=== PATIENT | male | born 1985 | race Caucasian/White ===

== ENCOUNTER 2023-06-15 19:05 | Emergency (ER) | payer BC, SELFPAY ==
[2023-06-15 19:07] VITALS: BP 114/77; PULSE 83; RESP 18; TEMP 36.1; O2SAT 99; BMI 25.0
--- NOTE | 2023-06-15 19:37 | EKG12_ITS ---
Test Reason : SYNCOPE Blood Pressure : / mmHG Vent. Rate : 075 BPM Atrial Rate : 075 BPM P-R Int : 156 ms QRS Dur : 104 ms QT Int : 392 ms P-R-T Axes : 050 060 040 degrees QTc Int : 437 ms Normal sinus rhythm Normal ECG Confirmed by El Naranjo ([id number]), editor news MAVIS HOLLOWAY ([id number]) on 06/17/2023 10:59:44 AM Referred By: Confirmed By:El Naranjo
[2023-06-15 19:51] LABS: Hematocrit 47.4 % (40-54); Hemoglobin 16.6 g/dL (13.0-16.5); Mean Corpuscular Hgb 31.5 pg (27.0-32.0); Mean Corpuscular Volume 89.9 fL (80-94); Mean Platelet Vol. 9.7 fl (6.2-12.0); Platelet Count 332 K/mm3 (150-450); RBC Distribution Width CV 12.4 % (11.6-14.6); RBC Distribution Width SD 40.5 fl (35.1-43.9); Red Blood Count 5.27 M/mm3 (4.6-6.2)
[2023-06-15 20:05] VITALS: BP 122/75; PULSE 87; RESP 17; O2SAT 99
[2023-06-15 20:12] LABS: Anion Gap 9 (5-15); BUN 12 mg/dL (7-18); BUN/Creat Ratio 10.5 RATIO (10-20); Calcium,Total 9.3 mg/dL (8.5-10.1); Chloride 104 mmol/L (98-107); Creatinine, Serum 1.14 mg/dL (0.70-1.30); EST Glomerular Filtration Rate 76 mL/min (>60); Est Glom Filt Rate - Afr Amer 92 mL/min (>60); Estimated Creatinine Clearance 102.15 ml/min; Glucose 127 mg/dL (74-106); Potassium 3.4 mmol/L (3.5-5.1); Sodium Level 138 mmol/L (136-145)
[2023-06-15 20:38] VITALS: BP 118/74; BP 131/86; BP 134/87; PULSE 103; PULSE 85; PULSE 90
[2023-06-15 21:02] VITALS: BP 130/77; PULSE 87; RESP 14; O2SAT 98
--- NOTE | 2023-06-15 21:27 | EDS_ITS ---
HPI History of Present Illness Chief Complaint: Syncope Detail of Chief Complaint: Syncopal episode Informant: patient and spouse/S.O. Onset/Context/Timing Onset: Today and Hours Context: Sudden Onset Timing: Intermittent Quality: Syncope Location: [facility] Current Severity: Gone Maximum Severity: Severe Worsened by: After having a full meal and 3 beers since noon Relieved by: Not applicable Associated Symptoms Associated Symptoms: according to pallor, diaphoresis and possible generalized seizure act Narrative Narrative: Patient is a 37-year-old male. He has had 3 prior episodes of syncope. They occurred after eating a full meal after not eating anything for the entire day. He has no history of orthostatic hypotension, POTS or any cardiac disease. has history of POTS. She does see Dr. Wray. He denies headache, visual, ocular auditory symptoms. Denies chest pain, shortness of breath, dyspnea on exertion, orthopnea or PND. He denies leg pain or leg swelling. He has no history of VTE. He denies abdominal pain, he denies black or maroon-colored stool. He did report feeling nauseous and felt like he was going to pass out. He states his vision became black. Prior similar symptoms: Yes Recent Illness/Hospitalization: No PFSH PFSH Medical History no medical history no medical history Allergy/AdvReac Type Severity Reaction Status Date / Time No Known Allergies Allergy Verified 06/15/23 19:06 Surgical History no surgical history no surgical history Social History (Updated 06/15/23 @ 21:[address] Demar Calixto MD) household members: spouse and children Smoking Status: Never smoker do you feel safe at home: Yes ROS ROS ED Constitutional Constitutional ED: Denies chills, fever(s), subjective, sweats or weight loss Eyes Eyes: Denies blurry vision, change in vision or diplopia ENT ENT ED: Denies ear pain, rhinorrhea or sore throat Cardiovascular Cardiovascular: Denies chest pain, orthopnea, palpitations, paroxysmal nocturnal dyspnea or racing heartbeat Respiratory/Chest Respiratory/Chest: Denies cough, dyspnea, dyspnea on exertion, orthopnea or paroxysmal nocturnal dyspnea Gastrointestinal Gastrointestinal: Reports abdominal pain; Denies constipation, diarrhea, melena or vomiting Genitourinary Genitourinary ED: Denies dysuria, hematuria or urinary frequency Musculoskeletal Musculoskeletal: Denies arthralgias, back pain, myalgias or neck pain Integumentary Denies rash Neurologic Neurologic: Denies headache(s), paresthesias or weakness Endocrine Endocrinology: Denies cold intolerance or heat intolerance Hematologic/Lymphatic Hematologic/Lymphatic: Reports systems reviewed and no addt'l complaints, except as documented Allergic/Immunologic Allergic/Immunologic ED: Denies mouth swelling or tongue swelling EXAM Physical Exam Const Vital Signs: 06/15/23 19:07 06/15/23 19:47 06/15/23 20:05 Temperature 96.9 F L Temperature Source Temporal Pulse Rate 83 87 Pulse Rate [Lying] Pulse Rate [Sitting (for 1 minute prior to obtaining)] Pulse Rate [Standing (for 1 minute prior to obtaining)] Respiratory Rate 18 17 Respiratory Effort Normal Respiratory Pattern Normal Blood Pressure 114/77 122/75 H Blood Pressure [Lying] Blood Pressure [Sitting (for 1 minute prior to obtaining)] Blood Pressure [Standing (for 1 minute prior to obtaining)] Blood Pressure Mean 89 90 Blood Pressure Mean [Lying] Blood Pressure Mean [Sitting (for 1 minute prior to obtaining)] Blood Pressure Mean [Standing (for 1 minute prior to obtaining)] Pulse Ox 99 99 Oxygen Delivery Method Room Air Room Air 06/15/23 20:38 06/15/23 21:02 Temperature Temperature Source Pulse Rate 87 Pulse Rate [Lying] 85 Pulse Rate [Sitting (for 1 minute prior to obtaining)] 90 Pulse Rate [Standing (for 1 minute prior to obtaining)] 103 H Respiratory Rate 14 Respiratory Effort Respiratory Pattern Blood Pressure 130/77 H Blood Pressure [Lying] 118/74 Blood Pressure [Sitting (for 1 minute prior to obtaining)] 131/86 H Blood Pressure [Standing (for 1 minute prior to obtaining)] 134/87 H Blood Pressure Mean 94 Blood Pressure Mean [Lying] 88 Blood Pressure Mean [Sitting (for 1 minute prior to obtaining)] 101 Blood Pressure Mean [Standing (for 1 minute prior to obtaining)] 102 Pulse Ox 98 Oxygen Delivery Method Room Air Positive well nourished and well developed Constitutional Narrative: Patient is had multiple blood pressures. They have been slightly elevated. General Appearance ED: well developed; Negative for cyanotic, diaphoretic or pallor HEENT Reports moist mucous membranes HEENT Narrative: Head is atraumatic and normocephalic. Ears normal. Nares patent. Posterior pharynx is normal. Eyes PERRL and EOMs intact bilaterally General Eye ED: Negative for pale conjunctiva or scleral icterus Neck no lymphadenopathy and supple Chest Wall inspection of chest normal and palpation of chest normal Resp normal respiratory effort and clear to auscultation bilaterally Cardio regular rate, regular rhythm, S1 normal heart sound, S2 normal heart sound and no murmurs GI normal to inspection, nondistended, normoactive bowel sounds, non-tender, non- distended and no masses; Negative for hepatosplenomegaly GI Narrative: There is no palpable pulsatile mass. Back/Spine Back/Spine Narrative: Inspection is normal. Extremity normal to inspection Extremity Narrative: There is no asymmetry, swelling, discoloration, leg vein distention, palpable cords or tenderness along the distribution of the deep venous system. Neuro oriented x3, CN's II-XII intact bilaterally and no sensory deficits noted Sensorium / Orientation: alert Motor Exam: strength 5/5 throughout Psych mental status grossly normal Skin no rashes or lesions noted, no wounds and skin turgor normal General Skin Exam: Negative for jaundice or pallor MDM MDM MDM Narrative Medical decision making narrative: Differential diagnosis is vasovagal syncopal episode, malignant orthostatic hypotension, GI bleed, orthostatic hypotension due to blood loss versus hypovolemia. CBC was obtained since white count H&H compared to prior. BMP to assess BUN to creatinine ratio and electrolytes. Patient placed on a monitor. EKG was obtained to assess for any dysrhythmia. History & Record Review Discussion w/independent historian: Patient and Significant other Lab Data Attestation: I reviewed the patient's lab results. Lab results narrative: CBC is unremarkable. BMP is unremarkable with a normal BUN to creatinine ratio. Labs: Laboratory Results - last 24 hr 06/15/23 18:50 WBC 8.0 RBC 5.27 Hgb 16.6 H Hct 47.4 MCV 89.9 MCH 31.5 MCHC 35.0 RDW Std Deviation 40.5 RDW Coeff of Pola 12.4 Plt Count 332 MPV 9.7 Sodium 138 Potassium 3.4 L Chloride 104 Carbon Dioxide 25.0 Anion Gap 9 BUN 12 Creatinine 1.14 Estim Creat Clear Calc 102.15 Est GFR (MDRD) Af Amer 92 Est GFR (MDRD) Non-Af 76 BUN/Creatinine Ratio 10.5 Glucose 127 H Calcium 9.3 EKG Initial EKG: Attestation: I personally reviewed and interpreted this EKG as follows: Interpretation: Sinus Rhythm (Rate is 75. EKG is normal. [place] interval is 156 ms. QRS duration is 104 ms. QT duration is 392 ms. [place] is normal.) Treatment and Re-Evaluation :: Since this is the fourth episode this patient has had he was referred to Dr. Wray for possible table tilt test. is aware of table tilt test is because she sees Dr. Wray for POTS disease. Discharge Plan Triage Chief Complaint: Syncope ED Provider: Demar Calixto Dx/Rx/DC Orders Clinical Impression: Seizure-like activity, Syncope, vasovagal, Elevated blood-pressure reading, without diagnosis of hypertension Instructions: ED Hypertension, To Be Confirmed, ED Fainting, Vagal Reaction Primary Care Provider: Guy Mace Referrals: Andrew Davalos MD [Med Staff - Active Staff] - 1 Week Guy Mace MD [Primary Care Provider] - Disposition Disposition: Home, Self Care
[2023-06-15 21:57] VITALS: BP 130/76; PULSE 91; RESP 16; TEMP 36.3; O2SAT 100
== END 2023-06-15 21:57 | disposition home or self-care (01) ==
PROVIDERS: Emergency Provider Emergency Medicine; PCP Family Medicine; Visit Provider Emergency Medicine
DX: R56.9 Unspecified convulsions (principal); R55 Syncope and collapse; R03.0 Elevated blood-pressure reading, without diagnosis of hypertension
CPT/HCPCS: 80048; 85027; 93005; 99285

== ENCOUNTER → 2023-07-28 | Outpatient (CLI) | payer BC, SELFPAY ==
[2023-07-28 11:16] LABS: Cholesterol 195 mg/dL (200); High Density Lipoprotein 42 mg/dL; Triglycerides 81 mg/dL; Very Low Density Lipoprotein 16 mg/dL (5-40)
== END | disposition home or self-care (01) ==
LOC: LAB 10:00
PROVIDERS: PCP Family Medicine; Referring Provider Internal Medicine Cardiovascular Disease; Visit Provider Internal Medicine Cardiovascular Disease
DX: R55 Syncope and collapse (principal); E78.5 Hyperlipidemia, unspecified
CPT/HCPCS: 36415; 80061